=== PATIENT | male | born 1955 | race Caucasian/White ===

== ENCOUNTER 2023-10-04 08:34 | Inpatient (IN) | payer MEDICARE, SELFPAY ==
[2023-09-28 13:30] VITALS: BMI 29.8
[2023-10-04] VITALS (19 sets, daily range): BP systolic 95–145; BP diastolic 48–88; PULSE 60–108; RESP 14–23; TEMP 36–36.8; O2SAT 92–100; BMI 29.8
[2023-10-04] MEDS: LACTATED RINGERS 1,000 ML 42 ML IV ×3 (09:27→15:37)
--- NOTE | 2023-10-04 11:19 | PM.PREOP ---
Pre-operative Note Interval Note History & Physical reviewed/Exam performed by Physician: Yes Changes to H&P: No
[2023-10-04] MEDS: CEFAZOLIN 2 GM/100 ML PREMIX 100 ML IV ×2 (12:31→21:18)
--- NOTE | 2023-10-04 13:31 | SUR.OPER ---
Prone on spine table, head in foam head support, padded chest and pelvic supports, gel pad at knees, lower legs supported by pillows; nipples, genitalia and toes free of pressure, arms secured on foam padded arm boards at <90 degrees abduction. Tape over blanket at thigh secured to table.
[2023-10-04] MEDS: BUPIVACAINE 0.25% (PF) 60 ML, EPINEPHrine 0.15 MG INJ (13:39)
[2023-10-04] MEDS: BUPIVACAINE LIPOSOME 266 MG/20 ML VIAL INJ (13:40)
--- NOTE | 2023-10-04 14:49 | DI.RAD.S_ITS ---
PROCEDURE: XR LUMBAR SPINE 2-3V INDICATIONS: L 4-5, L5-S1 TLIF TECHNIQUE: 2 intraoperative fluoroscopic views of the lumbar spine were acquired. COMPARISON: [facility], , L-SPINE 2-3 VIEWS, 11/22/2015, 13:59. FINDINGS: Intraoperative fluoroscopic images of lower lumbar spine shows posterior fusion at L4-5 and L5-S1 levels. IMPRESSION: Fluoro guidance was provided intraoperatively for posterior fusion at L4-5 and L5-S1 levels. Dictated by: Pedro Castillo M.D. on 10/04/2023 at 17:28 Approved by: Pedro Castillo M.D. on 10/04/2023 at 17:29
--- NOTE | 2023-10-04 17:11 | P.OP_ITS ---
Operative Date/Time/Diagnoses Date of procedure: 10/04/23 Time of procedure: 12:50 Pre-op diagnosis: 1. L4-5, L5-S1 spinal stenosis with radiculopathy 2. History of L4-5, L5-S1 laminectomy with epidural scarring Post-op diagnosis: same Procedure & Clinicians Procedure: 1. L4-5, L5-S1 Postero-lateral and posterior interbody fusion 2. L4-5, L5-S1 interbody cage placement. 3. L4-5, L5-S1 decompressive laminectomy with bilateral facetecomies 4. L4-5, L5-S1 Posterior segmental instrumentation 5. [place] of bone marrow from iliac crest 6. Utilization of microsurgical technique and operating microscope 7. Utilization of robotic assisted navigation Same procedure as scheduled: Yes Indications: Patient has been having chronic back pain and worsening lumbar radiculopathy. Patient had previous history of laminectomy at his L4-5 L5-S1 level on the right side. Patient has persisting and worsening pain right worse than left. Patient failed multiple conservative management with worsening pain weakness and numbness in his lower extremity. Patient has been having difficulty performing activity of daily living. After discussing risks benefits of treatment options, patient elected proceed with surgery. Surgeon: Kathrine Woodard Still Operator Brandy: Iron Berry Click Yes if Unassisted: No Anesthesia Type: General Operative Notes Closure Type: primary Prosthetic devices, grafts, tissues, transplants, or devices: Globus CREO MIS screws, Rise cages Applied: catheter Estimated Blood Loss (mL): 100 Blood products transfused: none Procedure in detail: Patient was seen in the preoperative area. Risks and benefits of the surgery was discussed with the patient. Informed consent was obtained from the patient and placed in the chart. Surgical site was marked. Patient was taken to the operative room. General anesthesia was administered. Prophylactic antibiotic was given to the patient less than 30 min before the incision was made. Patient was placed into a prone position on the Carlito table. Patient's back was then prepped and draped in the sterile fashion. Time-out was performed at this time. After patient was prepped and draped, patient's PSIS was palpated and marked bilaterally. Small 1 cm incision was made over the PSIS for placement of the reference probes. Two trocar was placed into the PSIS 1 on each side. The reference probe was attached to the trocar of the reference apparatus. At this time the C-arm imaging was used to confirm AP and lateral of L4-L5, L5- S1 vertebrae and merged the C-arm imaging using the MatrixVision robotic navigation system with the CT of the lumbar spine. After successful merging was completed and confirmed, skin marker was used to zoila out the skin incision using the MatrixVision robotic arm. Bilateral incision was made at this time. Pre templated trajectory was used and guided using the MatrixVision robotic navigation system for bilateral L4, L5, S1 pedicle screw placement. This was done by using the robotic arm to guide the high-speed bur to make a cortical entry point. Next a drill was placed also using the robotic arm and guided using the navigation system drilling partially through bilateral L4, L5 and S1 pedicles. Next L4, L5, S1 pedicle screws it was pre templated and measured was placed onto the power straddle truck driver and inserted into the pedicles bilaterally. After all 6 screws were placed C-arm imaging was taken of both AP and lateral to confirm the placement. Excellent placement of the screws were confirmed and a matched precisely with the pre planned screw placement using the navigation system. MARs retractor was inserted using [employer] guidence. Globus MARS retractors was placed inside the incision and docked onto the L4 and L5 lamina. Using microsurgical technique and operating microscope, a L4, L5 laminectomy and L4-5, L5-S1 facetectomy was performed using a Kerrison rongeur. Patient was found to have significant amount of epidural scarring from previous laminectomy with dural and nerve root adhesion. Special care was taken to dissect them free off the dura and nerve root in the process of exposing the disc space in the process of decompression and diskectomy. The laminectomy and facetectomy was performed in order to decompress patient's cauda equina as well as the nerve roots exiting at the L4-5, L5-S1 level. Patient was found have severe lateral recess and neural foramen stenosis which was fully decompressed after the kamaljit ectomy facetectomy. More than 75% of the facets were removed during the process of decompression rendering L4-5, L5-S1 level grossly unstable and required a fusion procedure at the same time. The disc space at L4-5, L5-S1 was identified, and a total diskectomy was performed at L4-5, L5-S1 level. The endplates were decorticated using a rasp and shaver. The total diskectomy and decortication was performed at L4-5, L5-S1 level in order to to accomplish a L4- 5, L5-S1 fusion. The local bone from the laminectomy and facetectomy was saved for local bone grafting. After the total diskectomy and decortication was completed, DBM bone graft material was combined with local bone that was harvested earlier. At this time, a separate skin is incision was made over the iliac crest. A Jamshidi needle was inserted into the iliac crest through a separate skin incision. 5 cc of bone marrow aspiration was obtained through the separate skin incision using a Jamshidi needle from the iliac crest. The bone marrow aspiration was combined with local bone and the DBM bone grafting material. The bone grafting material was placed into the L4-5, L5-S1 interbody space along with a expandable cage. The cage was expanded to its maximum height using the torque limiting screwdriver. The disc preparation as well as the cage insertion were also performed under navigation guidance. After the cage was placed, AP and lateral C-arm imaging was taken to confirm placement of the cage and excellent position was confirmed. Globus MARS retractor was inserted and docked onto the L4-5, L5-S1 posterolateral gutter on the right side. Using the power drill, posterior- lateral decortication was performed at L4-5, L5-S1 level until bleeding cortical bone was identified. The remaining bone grafting material was placed into the L4-5, L5-S1 posterior lateral gutter he order to accomplish posterolateral fusion at the L4-5, L5-S1 level. At this time the tulips were attached to the L4, L5, S1 pedicle screw shanks. After measuring the length of the rods, they were inserted into the tulips of the pedicle screws and locked in place using locking caps and torque limiting screwdriver bilaterally. Total 6 caps and 2 titanium rods was used in order to complete the posterior instrumentation construct. After all the hardware was placed, and confirmed with AP and lateral C-arm imaging, the wound was then irrigated with sterile normal saline and packed with Ray-Kerry gauze for 3 min to accomplish hemostasis. After the gauze was removed the deep fascia was closed with #1 Vicryl suture. The subcutaneous layer was closed with 2-0 Vicryl. The skin was closed with skin tres. Patient tolerated the procedure well. There were no complications. Neuro monitoring system was used to monitor patient's neurologic status throughout entire procedure. There was no disturbance of the neural monitoring signals throughout the case. The Operation could not have been safely performed without compromising the tech nical result or length of the procedure, without the assistance of a skilled surgical instrument maker. The surgical instrument maker was medically necessary for proper positioning, retraction and manipulation of instruments, proper exposure, surgical preparation, and manipulation of tissue. Complications: none Post-operative Condition: stable Disposition: PACU Plan for aftercare: Admit to inpatient hospital
[2023-10-04] MEDS: LORazepam 2 MG/ML INJ 1 MG IV (18:00)
[2023-10-04] MEDS: HYDROMORPHONE 1 MG INJ IV ×2 (18:01→18:48)
[2023-10-04] MEDS: fentaNYL 100 MCG/2 ML INJ IV ×2 (18:13→18:54)
[2023-10-04] MEDS: OXYCODONE/ACETAMINOPHEN 5/325 TABLET 1 TAB PO ×2 (18:52→19:22)
[2023-10-04] MEDS: LACTATED RINGERS 1,000 ML 125 ML IV (20:07)
[2023-10-04] MEDS: ATORVASTATIN 20 MG TABLET 80 MG PO (21:17)
[2023-10-04] MEDS: METOPROLOL ER 50 MG TABLET PO (21:17)
[2023-10-04] MEDS: ACETAMINOPHEN 325 MG TABLET 650 MG PO (21:17)
[2023-10-04] MEDS: lisinopriL 10 MG TABLET PO (21:17)
[2023-10-04] MEDS: SENNOSIDES 8.6 MG TABLET 17.2 MG PO (21:17)
[2023-10-04] MEDS: DOCUSATE 100 MG CAPSULE PO (21:18)
--- NOTE | 2023-10-04 21:34 | PC.NURSE ---
salazar since pt's arrival to from PACU approx 1930 pt has been complaining of need to pee and continuously rolling back and forth and pulling at blankets and salazar. Salazar patent up on arrival to with chicken broth appearing urine in collection tubing draining into salazar bag. Salazar inspected and was free of any kinks or abnormalities and appeared to be draining as is supposed to. 2100 salazar DC'd per pt request. 300 cc of urine emptied from salazar. Bladder scan performed at 0 as pt states continued need to void and is unable to do so to urinal; scan result 72cc. pt denies any pre-op UTI symptoms. Brief placed. pt educated that we can continue to scan bladder, assist with urinal use if/when needed. Bed alarm on .
[2023-10-05] VITALS (10 sets, daily range): BP systolic 95–130; BP diastolic 53–68; PULSE 68–96; RESP 16–19; TEMP 36.4–37.3; O2SAT 94–99
[2023-10-05] MEDS: OXYCODONE IR 10 MG TABLET PO ×6 (00:53→19:53)
[2023-10-05] MEDS: CEFAZOLIN 2 GM/100 ML PREMIX 100 ML IV (04:07)
[2023-10-05 04:52] LABS: Hematocrit 34.6 % (41-53); Hemoglobin 11.4 g/dL (13.5-17.5)
[2023-10-05] MEDS: DOCUSATE 100 MG CAPSULE PO ×2 (08:48→20:38)
[2023-10-05] MEDS: METOPROLOL ER 50 MG TABLET PO (08:51)
--- NOTE | 2023-10-05 09:25 | OT.IP.EVAL ---
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) Left anterior fascicular block Surgical History (Last Updated 09/28/23 @ 14:08 by Lynn Martinez RN) History of ankle surgery History of cardiac catheterization History of cervical spinal surgery History of spinal surgery Hx of heart artery stent (01/08/20) Occupational Therapy Inpatient Evaluation/Re-Eval M1 PT/OT-IP Prior Functional Status Start: 10/05/23 10:15 Freq: NEEDED Status: Active Protocol: Document 10/05/23 09:25 [facility] (Rec: 10/05/23 10:31 [facility] [id number]) Medical Review Prior Functional Status Medical History Reviewed Yes Diet/Fluid Consistency Regular Communication WNLs, hyperverbal and distractable, difficult to stay on task with PT Mobility and Gait I Activities of Daily Living and IADL's I, lives alone, volunteers for Meals on Wheels Social History Household Members none Living Arrangements House Number of Floors (Floors) One Floor Number of Stairs To Enter/Railing? 5 steps to enter with two rails that he can reach Home Environment Standard Height Toilet,Walk in Shower Home Equipment Shower Seat without Backrest Employment Status Retired Additional Social History Comment Pt plans to stay at his neighbor's place [facility] first night. Pt has a standard pickle pumper walker. M2 OT-IP Current Condition Start: 10/05/23 10:15 Freq: Status: Active Protocol: Document 10/05/23 09:25 [facility] (Rec: 10/05/23 10:31 [facility] [id number]) Occupational Therapy Current Condition Current Condition Evaluation Date 10/05/23 Treatment Diagnosis S/P L4-5, L5-S1 TLIF Diagnosis Onset Date 10/04/23 Post Operative Precautions Lumbar Precautions Log Roll,No Twisting,Limit Bending,Lifting Restriction of 10 lbs,Gait Belt above Incisional Area M3 OT- IP Subjective and Pain Start: 10/05/23 10:15 Freq: Status: Active Protocol: Document 10/05/23 09:25 [facility] (Rec: 10/05/23 10:31 [facility] [id number]) OT- Subjective Occupational Therapy Visit Type Type Initial Evaluation Visit Start Time 09:25 Visit Stop Time 09:50 Total Visit Minutes 25 Occupational Therapy Visit Comments Patient Comments Pt agreed to get up to do grooming needs Patient/Caregiver Goals To go home. OT Pain Assessment Pain When Pain Assessed During Mobility Pain Present Pain Present Pain Reported Location back Intensity 8 Scale Used Numeric (0 - 10) M4 OT- IP ADL's Start: 10/05/23 10:15 Freq: Status: Active Protocol: Document 10/05/23 09:25 [facility] (Rec: 10/05/23 10:31 [facility] [id number]) OT [id number] General Evaluation Self-Feeding Ability Independent OT ADL-Grooming General Evaluation Grooming Ability Independent OT ADL-Oral Care General Eval Oral Care Ability Independent Comments Oral Care Comments Cues to hinge at his hips or spit into a cup to best follow his back precautions. OT ADL-Dressing General Eval Lower Body Dressing Ability Standby Assistance Comments OT Dressing Comments Pt insists that he can do all LB dressing needs on his own and able to comfortable cross his legs over to esperanza/doff his socks and not open to any LB dressing equipment needs at this time. OT ADL-Toileting Comments OT Toileting Comments Pt not having to go . Pt agreed would be beneficial to take the urinal home. OT ADL-Bathing Comments OT Bathing Comments Not performed. Best to have someone there when showering to help cover his dressing. M5 OT- IP IADL's Start: 10/05/23 10:15 Freq: Status: Active Protocol: Document 10/05/23 09:25 [facility] (Rec: 10/05/23 10:31 [facility] [id number]) OT-Instrumental Activities of Daily Living Deficits IADL Deficits Identified Deficits Home Safety Awareness Awareness of Need for Assistance at Home Decreased Awareness Home Safety Comments Pt is impulsive and needing constant safety cues for his back precautions. M6 OT- IP Functional Cognition Start: 10/05/23 10:15 Freq: Status: Active Protocol: Document 10/05/23 09:25 [facility] (Rec: 10/05/23 10:31 [facility] [id number]) Cognitive Factors Limiting Selfcare Function Cognitive Ability Level of Alertness Alert Patient Orientation Name,Age,Birthday,Place, Situation Attention Span Ability Capable of Focused Attention, Capable of Sustained Attention Ability to Follow Commands Able to Follow One Step Commands Safety Awareness Decreased Recall of Precautions,Decreased Ability to Apply Precautions, Underestimates Need for Assistance Cognitive Comments Cognitive Assessment Comments Pt not able to recall all back precautions and needing MAX vc to follow them for ADL and mobility needs. OT- Vision and Hearing OT- Hearing Assessment OT- Hearing Assessment WFL OT- Vision Assessment Visual Acuity Glasses For Reading M7 OT- IP Mobility and Balance Start: 10/05/23 10:15 Freq: Status: Active Protocol: Document 10/05/23 09:25 [facility] (Rec: 10/05/23 10:31 [facility] [id number]) OT- Bed Mobility Assessment Sit to Supine Sit to Supine Assist Standby Assistance OT-Transfer Assessment Sit to and From Stand Sit to and from Stand Standby Assistance Transfers Transfer Ability Contact Guard Assistance Technique Transfer Destination Bed,Chair Transfer Technique Stand Step Pivot Devices Transfer Assistive Devices Gait Belt,Front Wheeled Walker Orthotic/Prosthetic Devices or Brace: No Comments Mobility Comments Pt SBA to stand and occasional CGA for balance as the FWW tends to roll in front on him and needing assist for balance . OT- Balance Assessment Sitting Balance and Reactions Static Sitting Balance Ability Normal Dynamic Sitting Balance Ability Good Standing Balance and Reactions Static Standing Balance Ability Good Dynamic Standing Balance Ability Fair M8 OT- IP Objective Assessments Start: 10/05/23 10:15 Freq: Status: Active Protocol: Document 10/05/23 09:25 [facility] (Rec: 10/05/23 10:31 [facility] [id number]) OT Gross Range of Motion Upper Extremity Range of Motion Assessment Within Functional Limits OT Strength Upper Extremity Strength Assessment Within Functional Limits M9 OT- IP Assessment and Plan Start: 10/05/23 10:15 Freq: Status: Active Protocol: Document 10/05/23 09:25 [facility] (Rec: 10/05/23 10:31 [facility] [id number]) OT Summary Assessment and Plan Potential Rehabilitation Potential Good Analytic Complexity at Evaluation Low Summary OT Impairments Pain,Balance,Functional Mobility,Dressing,Toileting, Bathing,Toilet Transfers, Shower Transfers Progress Towards Goals Progressing Toward Goals,Slow Progress due to Pain Assessment Summary Pt Low complexity and main barriers are pain, decreased safety awareness, impulsive and needing constant cue to incorporate his back precautions. Pt to go his neighbor's place initially. Pt states has friends to assist with his needs at home. Pt will benefit from LB dressing equipment and a FWW. Goals Dressing Goal Independent Toileting Goal Independent Bathing Goal Independent Toilet Transfer Goal Independent Shower Transfer Goal Independent Days to Meet Goals 7 Frequency of Treatment Frequency Of Treatment Once a Day Treatment Plan OT Treatment Plan ADL Training,Functional Mobility,Patient/Family Education,Discharge Planning Discharge Recommendations OT Discharge Recommendations Home with Assistance Home Equipment Needs FWW, LB dressing equipment Transportation Needs at Discharge Private Vehicle
--- NOTE | 2023-10-05 09:59 | PT.IIE ---
Current Diagnoses Spinal stenosis, lumbosacral region (10/04/23) Postlaminectomy syndrome, not elsewhere classified (10/04/23) Surgery Performed Operation Date: 10/04/23 10:45 Actual Procedures p L4-5, L5-S1 TLIF with posterior instrumentation -Robot - Kathrine Woodard MD Surgical History (Last Updated 09/28/23 @ 14:08 by Lynn Martinez, RN) History of ankle surgery History of cardiac catheterization History of cervical spinal surgery History of spinal surgery Hx of heart artery stent (01/08/20) Medical History (Last Updated 09/28/23 @ 13:54 by Lynn Martinez RN) Anterior myocardial infarction (01/08/20) CAD (coronary artery disease) Chronic neck pain Dilated cardiomyopathy History of alcohol abuse HLD (hyperlipidemia) HTN (hypertension) ICD (implantable cardioverter-defibrillator) in place (11/05/20) Left anterior fascicular block Physical Therapy Inpatient Evaluation/Re-Eval M1 PT/OT-IP Prior Functional Status Start: 10/05/23 08:24 Freq: NEEDED Status: Active Protocol: Document 10/05/23 08:40 MB (Rec: 10/05/23 09:57 MB [id number]) Medical Review Prior Functional Status Medical History Reviewed Yes Diet/Fluid Consistency Regular Communication WNLs, hyperverbal and distractable, difficult to stay on task with PT Mobility and Gait I Activities of Daily Living and IADL's I, lives alone, volunteers Social History Household Members none Living Arrangements House Number of Floors (Floors) One Floor Number of Stairs To Enter/Railing? 5 steps to enter with two rails that he can reach Home Environment Standard Height Toilet,Walk in Shower Home Equipment Shower Seat without Backrest Employment Status Retired M2 PT-IP Current Condition Start: 10/05/23 08:24 Freq: NEEDED Status: Active Protocol: Document 10/05/23 08:40 MB (Rec: 10/05/23 09:57 MB [id number]) Physical Therapy Current Condition Current Condition Evaluation Date 10/05/23 Treatment Diagnosis L4-S1 interbody fusion and cage placement Onset Date 10/04/23 M3 PT-IP Subjective Start: 10/05/23 08:24 Freq: NEEDED Status: Active Protocol: Document 10/05/23 08:40 MB (Rec: 10/05/23 09:57 MB [id number]) Subjective Physical Therapy Visit Type Type Initial Evaluation Visit Start Time 08:40 Visit Stop Time 09:20 Total Visit Minutes 40 Number of SENIOR MAINTENANCE TECHNICIAN Visits 0 Physical Therapy Visit Comments Patient Comments I can get up and walk and then take a motorcycle ride! Therapy Pain Assessment Pain When Pain Assessed During Mobility Pain Present Pain Present Pain Reported Location back Intensity 5 Scale Used PuenteMeaghan (Faces) Description Acute Pain Behaviors Guarding Pain Management Techniques Distraction,Modification of Treatment,Timing of Activity with Medications M4 PT-IP Mobility and Gait Start: 10/05/23 08:24 Freq: NEEDED Status: Active Protocol: Document 10/05/23 08:40 MB (Rec: 10/05/23 09:57 MB [id number]) PT-Bed Mobility Assessment Rolling Type of Rolling Log Rolling Level of Assist Standby Assistance,1 Person Assistance Supine to Sit Supine to Sit Standby Assistance,1 Person Assistance,Bedrails Scooting Scooting to Edge of Bed Standby Assistance PT-Transfer Assessment Sit to and From Stand Sit to and from Stand Contact Guard Assistance,1 Person Assistance,Use of Upper Extremities Equipment Transfer Assistive Device Gait Belt,Front Wheeled Walker Orthotic/Prosthetic Devices or Brace: No Comments Mobility Comments Pt is impulsive and does not wait to follow commands. PT ed pt in log rolling and then must remind pt to perform before getting OOB to the left . Pt requires constant cueing for safety with mobility. Gait Assessment Gait Gait Assistance Required: Contact Guard Assist,1 Person Assist Distance (Feet) 100 Able to Maintain Weight Bearing Status Yes During Gait Assistive Devices Assistive Device Gait Belt,Front Wheeled Walker Orthotic/Prosthetic Devices or Brace: No Gait Deviations General Gait Pattern Antalgic Factors Limiting Gait Function Factors Limiting Gait Function Pain,Poor Balance,Poor Safety Awareness Comments Gait Comments Pt gait trains 10'x1, 100'x1, 5'x2 and 10'x1 with RW, cues, and CGA. Pt with poor safety awareness and high impulsivity . He requires constant cueing for redirection to improve safety and balance. He c/o back pain with gait and so PT pushes him back to room in w/c . Pt states he has a SW that he borrowed and he does not want to buy a RW from the hospital. He states he can get one from a DME place in [facility]. Pt demos how it would be to use a SW and then he states he sees how the RW is optimal for gait. Stair Climbing Assessment Evaluation Level of Assist On Stairs Contact Guard Assistance,1 Person Assistance Devices Stair Climbing Assistive Devices Left Railing,Right Railing Technique/Endurance Stair Climbing Direction Ascend and Descend Stair Climbing Technique Step Over Step Number of Steps Climbed 3 Query Text: Stair Climbing Set # Repetitions (reps) 2 Comments Stair Climbing Comments Pt with fast speed and impulsivity with steps PT-Balance Assessment Sitting Balance and Reactions Static Sitting Balance Ability Good Dynamic Sitting Balance Ability Good Standing Balance and Reactions Static Standing Balance Ability Fair Dynamic Standing Balance Ability Fair M5 PT-IP Objective Assessments Start: 10/05/23 08:24 Freq: NEEDED Status: Active Protocol: Document 10/05/23 08:40 MB (Rec: 10/05/23 09:57 MB [id number]) Orientation Orientation/Cognition Level of Alertness Alert Orientation Name,Age,Birthday,Month,Date, Year,Day of Week,Place, Situation Language Function Ability No Deficits Noted Safety Awareness Decreased Safety Awareness Memory Description No Deficits Noted Gross Range of Motion Upper Extremity ROM Impairments Defer to OT Lower Extremity ROM Assessment Within Functional Limits Strength Lower Extremity Strength Assessment Within Functional Limits Sensation Assessment Sensation Gross Sensation WNL M6 PT-IP Treatment Start: 10/05/23 08:24 Freq: NEEDED Status: Active Protocol: Document 10/05/23 08:40 MB (Rec: 10/05/23 09:57 MB [id number]) Physical Therapy Treatment Education Education Provided Precautions,Post-Op Packet, Safety M7 PT-IP Assessment and Plan Start: 10/05/23 08:24 Freq: NEEDED Status: Active Protocol: Document 10/05/23 08:40 MB (Rec: 10/05/23 09:57 MB [id number]) PT Summary Assessment and Plan Potential Rehabilitation Potential Good Status of Condition at Evaluation Stable Summary Impairments Pain,Balance,Activity Tolerance Progress Towards Goals Progressing Toward Goals Assessment Summary Pt is a 68 y/o male presenting with impulsivity with mobility and difficulty staying on task. He requires constant cueing to perform log roll, for hand placement with transfers, for walker position for transfers and for stair training. Pt has a SW he borrowed and is adamant about not wanting to buy a RW from the hospital. After gait training with RW and PT's explanation, he verbalizes understanding how the RW is more helpful for gait than the SW. He is at high fall risk. He states his neighbor will pick him up from the hospital and that his neighbors can help him at home. Goals Bed Mobility Goal Independent Transfer Goal Independent,Front Wheeled Walker Gait Goal Independent,Front Wheel Walker Gait Distance 100 Other Goals Pt will ascend and descend 5 steps with 2 rails and mod I. Pt will verbalize 3/3 back precautions. Days to Meet Goals 2 Frequency of Treatment Frequency Of Treatment Twice a Day Treatment Plan Physical Therapy Treatment Plan Bed Mobility Training,Transfer Training,Gait Training, Therapeutic Exercise,Balance Retraining,Post Op Education, Discharge Planning,Hot or Cold Pack Precautions Lumbar Precautions Log Roll,No Twisting,Limit Bending,Lifting Restriction of 10 lbs,Gait Belt above Incisional Area Weight Bearing Status Weight Bearing Status Weight Bear as Tolerated Recommendations To Nursing Amount of Assist Needed 1 Person Assist Discharge Recommendations PT Discharge Recommendations Home with Assistance Transportation Needs at Discharge Private Vehicle
--- NOTE | 2023-10-05 10:32 | PM.PNPO.1 ---
Subjective Subjective Date Patient Seen: 10/05/23 Time Patient Seen: 10:32 Interval history: Patient states his pain is [id number]. Denies fever or chills. No nausea or vomiting. Patient does live alone. Patient states he has some neighbors that we will be available to assist him. Exam Vital Signs (past 8 hours): - 10/05/23 04:00 10/05/23 08:13 10/05/23 08:20 Temperature 97.7 F 98.1 F Pulse Rate 70 88 Respiratory Rate 19 17 Blood Pressure 106/57 L 95/53 L Pulse Oximetry 99 98 Oxygen Delivery Method Room Air Oxygen Flow Rate 3 0 0 Fraction of Inspired Oxygen 21 10/05/23 08:51 10/05/23 08:51 Temperature Pulse Rate 88 Respiratory Rate Blood Pressure 101/56 L 101/56 L Pulse Oximetry Oxygen Delivery Method Oxygen Flow Rate Fraction of Inspired Oxygen Fraction of Inspired Oxygen 21 Oxygen Delivery Method Room Air Oxygen Flow Rate 0 Narrative Exam Narrative: 68-year-old male resting comfortably in bed in no apparent distress. Sensation grossly intact to light touch bilateral lower extremities. Motor functions intact bilateral lower extremities. Const General: cooperative and comfortable Nutritional Appearance: average body habitus Orientation: alert Resp Effort & Inspection: normal respiratory effort and able to speak in complete sentences Objective Labs 10/05/23 04:36 Labs: Laboratory Results - last 24 hr 10/05/23 04:36 Hgb 11.4 L Hct 34.6 L PFSH Medical History Left anterior fascicular block HTN (hypertension) HLD (hyperlipidemia) Dilated cardiomyopathy Chronic neck pain CAD (coronary artery disease) History of alcohol abuse ICD (implantable cardioverter-defibrillator) in place (11/05/20) Anterior myocardial infarction (01/08/20) Surgical History History of ankle surgery History of cervical spinal surgery History of spinal surgery History of cardiac catheterization Hx of heart artery stent (01/08/20) Social History household members: none Smoking Status: Former smoker alcohol intake: former Assessment & Plan Post-op Postoperative Procedures: Procedures Operation Date: 10/04/23 10:45 Actual Procedure Side Surgeon p L4-5, L5-S1 TLIF with posterior instrumentation -Robot Kathrine Woodard MD Postoperative day: 1 Postoperative status: doing well Postoperative status narrative: Patient progressing as expected status post lumbar fusion Postoperative plan narrative: Mobilize with physical therapy, limit bending, twisting, lifting Multimodal pain management Disposition to be determined Quality VTE Deep Vein Thrombosis/Pulmonary Embolism Present on Admission: No
[2023-10-05] MEDS: LACTATED RINGERS 1,000 ML 125 ML IV (11:27)
--- NOTE | 2023-10-05 12:31 | PM.PNPO.1 ---
Subjective Subjective Interval history: pt resting in bed. expresses pain controlled at this time. ambulating around the halls with pain and discomfort. no issues with anesthesia. Exam Vital Signs (past 8 hours): - 10/05/23 08:13 10/05/23 08:20 10/05/23 08:51 Temperature 98.1 F Pulse Rate 88 Respiratory Rate 17 Blood Pressure 95/53 L 101/56 L Pulse Oximetry 98 Oxygen Delivery Method Room Air Oxygen Flow Rate 0 0 Fraction of Inspired Oxygen 21 10/05/23 08:51 10/05/23 11:22 10/05/23 11:28 Temperature 98.5 F Pulse Rate 88 68 77 Respiratory Rate 16 Blood Pressure 101/56 L 96/55 L 96/55 L Pulse Oximetry 97 Oxygen Delivery Method Oxygen Flow Rate Fraction of Inspired Oxygen Fraction of Inspired Oxygen 21 Oxygen Delivery Method Room Air Oxygen Flow Rate 0 Objective Labs 10/05/23 04:36 Labs: Laboratory Results - last 24 hr 10/05/23 04:36 Hgb 11.4 L Hct 34.6 L PFSH Medical History Left anterior fascicular block HTN (hypertension) HLD (hyperlipidemia) Dilated cardiomyopathy Chronic neck pain CAD (coronary artery disease) History of alcohol abuse ICD (implantable cardioverter-defibrillator) in place (11/05/20) Anterior myocardial infarction (01/08/20) Surgical History History of ankle surgery History of cervical spinal surgery History of spinal surgery History of cardiac catheterization Hx of heart artery stent (01/08/20) Social History household members: none Smoking Status: Former smoker alcohol intake: former Assessment & Plan Post-op Postoperative Procedures: Procedures Operation Date: 10/04/23 10:45 Actual Procedure Side Surgeon p L4-5, L5-S1 TLIF with posterior instrumentation -Robot Kathrine Woodard MD Quality VTE Deep Vein Thrombosis/Pulmonary Embolism Present on Admission: No
--- NOTE | 2023-10-05 13:08 | PT.IPTN ---
Current Diagnoses Spinal stenosis, lumbosacral region (10/04/23) Postlaminectomy syndrome, not elsewhere classified (10/04/23) Surgery Performed Operation Date: 10/04/23 10:45 Actual Procedures p L4-5, L5-S1 TLIF with posterior instrumentation -Robot - Kathrine Woodard MD Physical Therapy Treatment Note M2 PT-IP Current Condition Start: 10/05/23 08:24 Freq: NEEDED Status: Active Protocol: Document 10/05/23 08:40 MB (Rec: 10/05/23 09:57 MB [id number]) Physical Therapy Current Condition Current Condition Evaluation Date 10/05/23 Treatment Diagnosis L4-S1 interbody fusion and cage placement Onset Date 10/04/23 M3 PT-IP Subjective Start: 10/05/23 08:24 Freq: NEEDED Status: Active Protocol: Document 10/05/23 13:47 TS (Rec: 10/05/23 14:03 TS [id number]) Subjective Physical Therapy Visit Type Type Treatment Note Visit Start Time 13:08 Visit Stop Time 13:32 Total Visit Minutes 24 Number of TILE SPRAYER Visits 1 Physical Therapy Visit Comments Patient Comments Pt found resting in bed, impulsive to move before therapist is ready, reports feeling woozy and having higher pain this afternoon. Therapy Pain Assessment Pain When Pain Assessed During Mobility Pain Present Pain Present Pain Reported Location back Pain Behaviors Facial Grimacing,Guarding, Restlessness,Wincing Pain Management Techniques Distraction,Modification of Treatment,Timing of Activity with Medications M4 PT-IP Mobility and Gait Start: 10/05/23 08:24 Freq: NEEDED Status: Active Protocol: Document 10/05/23 13:47 TS (Rec: 10/05/23 14:03 TS [id number]) PT-Bed Mobility Assessment Rolling Type of Rolling Log Rolling Level of Assist Standby Assistance,1 Person Assistance Supine to Sit Supine to Sit Standby Assistance,1 Person Assistance,Bedrails Sit to Supine Sit to Supine Standby Assistance Scooting Scooting to Edge of Bed Standby Assistance Scooting Up and Down in Bed Standby Assistance PT-Transfer Assessment Sit to and From Stand Sit to and from Stand Standby Assistance,Use of Upper Extremities Equipment Transfer Assistive Device Gait Belt,Front Wheeled Walker Orthotic/Prosthetic Devices or Brace: No Comments Mobility Comments BP in supine 102/58, pt recalled 2/3 spinal precautions(no twisiting) prior to mobility. Logroll to R side SBA with use of handrails, pt cued for decreased twisting in low back . Supine to sit HOB elevated SBA with BUE support, pt demonstrates good carryover. Pt is impulsive to stand before therapist is ready. Sit to stand with FWW SBA, BP in standing 106/61, pt reports some lightheadedness. He his teeth on floor, attempted to seed cone picker, therapist made pt aware of spinal precautions and to not pick item off floor . Pt ambulated ~80'SBA w/FWW and a step thru gait. Pt reports increased dizziness, sat in w/c and was bought back to room. Sit to supine into bed SBA with logroll, pt demonstrates good carryover. Pt was left in bed all needs met, RN notified. Gait Assessment Gait Gait Assistance Required: Standby Assistance,1 Person Assist Distance (Feet) 80 Able to Maintain Weight Bearing Status Yes During Gait Assistive Devices Assistive Device Gait Belt,Front Wheeled Walker Orthotic/Prosthetic Devices or Brace: No Gait Deviations General Gait Pattern Antalgic Factors Limiting Gait Function Factors Limiting Gait Function Pain,Poor Balance,Poor Safety Awareness Comments Gait Comments See mobility comments PT-Balance Assessment Sitting Balance and Reactions Static Sitting Balance Ability Normal Dynamic Sitting Balance Ability Good Standing Balance and Reactions Static Standing Balance Ability Good Dynamic Standing Balance Ability Fair M5 PT-IP Objective Assessments Start: 10/05/23 08:24 Freq: NEEDED Status: Active Protocol: Document 10/05/23 08:40 MB (Rec: 10/05/23 09:57 MB [id number]) Orientation Orientation/Cognition Level of Alertness Alert Orientation Name,Age,Birthday,Month,Date, Year,Day of Week,Place, Situation Language Function Ability No Deficits Noted Safety Awareness Decreased Safety Awareness Memory Description No Deficits Noted Gross Range of Motion Upper Extremity ROM Impairments Defer to OT Lower Extremity ROM Assessment Within Functional Limits Strength Lower Extremity Strength Assessment Within Functional Limits Sensation Assessment Sensation Gross Sensation WNL M6 PT-IP Treatment Start: 10/05/23 08:24 Freq: NEEDED Status: Active Protocol: Document 10/05/23 13:47 TS (Rec: 10/05/23 14:03 TS [id number]) Physical Therapy Treatment Education Education Provided Precautions,Post-Op Packet, Safety M7 PT-IP Assessment and Plan Start: 10/05/23 08:24 Freq: NEEDED Status: Active Protocol: Document 10/05/23 13:47 TS (Rec: 10/05/23 14:03 TS [id number]) PT Summary Assessment and Plan Potential Rehabilitation Potential Good Summary Impairments Pain,Balance,Activity Tolerance Progress Towards Goals Slow Progress due to Pain,Slow Progress - Other Assessment Summary Edmond is making slow progress with his mobility this session due to his worsening of pain and lightheadedness. He is SBA for all bed mobility and requires some cueing for spinal precautions. He performed sit to stand with FWW SBA, pt is impulsive to stand before therapist is ready. He ambulated ~80'SBA with FWW, reported feeling woozy and required to sit down. Pt requires frequent cueing for safety with mobility and needs cues for spinal precautions, he lacks good safety awareness. Pt attempted to bend over to pick dentures off of ground and tends to twist at times. PT is recommending home with assist . Goals Bed Mobility Goal Independent Transfer Goal Independent,Front Wheeled Walker Gait Goal Independent,Front Wheel Walker Gait Distance 100 Other Goals Pt will ascend and descend 5 steps with 2 rails and mod I. Pt will verbalize 3/3 back precautions. Days to Meet Goals 2 Frequency of Treatment Frequency Of Treatment Twice a Day Treatment Plan Physical Therapy Treatment Plan Bed Mobility Training,Transfer Training,Gait Training, Therapeutic Exercise,Balance Retraining,Post Op Education, Discharge Planning,Hot or Cold Pack Precautions Lumbar Precautions Log Roll,No Twisting,Limit Bending,Lifting Restriction of 10 lbs,Gait Belt above Incisional Area Weight Bearing Status Weight Bearing Status Weight Bear as Tolerated Recommendations To Nursing Amount of Assist Needed 1 Person Assist Discharge Recommendations PT Discharge Recommendations Home with Assistance Transportation Needs at Discharge Private Vehicle
--- NOTE | 2023-10-05 16:45 | CM.DANOTE ---
DCP Assessment Note Patient is a 68yo M here following TLIF with Dr. Woodard on 10-04-23 PCP Gavin Woodruff Payer Medicare and self pay FACILITY COORDINATOR reviewed EMR. Per PT/OT, rec home with assistance. FACILITY COORDINATOR entered room and introduced self and role. Pt sitting up in bed. Pt lives alone in [facility] and is normally indep at baseline. Pt has a walker for post op. Pt is planning to stay with a friend, Jason ([phone]) for a little bit until he recovers from surgery. Friend is planning on taking him home. Originally he was thinking he was good to d/c today but after second PT session is in a lot of pain and wants to stay another night. FACILITY COORDINATOR communicated only the provider can make that decision, Pt reports understanding. Plan: home when medically stable. Transport with friend in POV to friend's house. CM team will continue to follow as needed. JOANNE Bryson Discharge Planning/Care Management CM Discharge Assessment Start: 10/05/23 16:40 Freq: Status: Active Protocol: Document 10/05/23 16:40 SL (Rec: 10/05/23 16:45 SL [id number]) Discharge Planning Assessment Assigned Surveyor Chain Helper JOANNE James Advance Directives? No History Provided By Patient,Medical Record Prior Living Arrangements House Household Members none Type of transporation used prior to Drives own vehicle admit Independent with ADL's Yes Is patient alert and oriented? Yes DME Already Rented / Owned FWW / Walker Discharge Plan Home Transportation Arrangement friend in POV Referrals Initiated None needed Whiteboard Updated in Patient Room with No name and ext. # of Surveyor Chain Helper Review Status In Process Next Review Type Continued Stay Review Pre-Anesthesia Assessment Start: 09/28/23 13:30 Freq: Status: Active Protocol: Document 09/28/23 13:30 CAB (Rec: 09/28/23 14:24 CAB [id number]) Pre-Anesthesia Assessment Preferred Name Neil Patient Information Reviewed Via Phone Assessment Assessment Completed With Patient Primary Care Provider Keith Woodruff Seen Specialist in Last 12 Months Yes Specialist Seen Heel Slicker,Orthopedist Primary Language Kazakh Wood Carver Required No Height 182.88 cm Weight 99.79 kg Body Mass Index (BMI) 29.8 Hearing Ability Normal Visual Assist Magnifying Glass Dentition Type Partial- Lower,Full- Upper Barriers to Learning None Hx Anesthesia Reactions No Hx Family Anesthesia Reaction No Hx Malignant Hyperthermia No Hx Blood Transfusions No Anesthesia Review Requested No Button Maker No alcohol intake former Alcohol Intake Frequency Other: Sober since 1998 Substance Use Type marijuana Pain Present Pain Reported Musculoskeletal Symptoms Abnormal Gait,Back Pain, Difficulty Walking,Joint Pain, Radiating Pain into Limb History of Falling (Recent or History of No ) Patient is completely paralyzed or No completely immobile Mental Status Oriented to own ability Is patient on oxygen? No Does patient have ELENA/SOB No Hx Sleep Apnea No Currently Taking a Beta Glenn Yes: Metoprolol Hx Chest Pain No Hx SOB No Hx Syncope or Dizziness No Anti-Coagulant Therapy Yes: ASA 81mg daily-advised to hold 7 days prior per surgeon Has a Heel Slicker Yes: Last visit 02/05/[address] Hill @ [facility] Cardiac Testing Echo 02/21/23 @ [facility] Hx Pacemaker/ICD Yes: ICD form scanned and copy placed in surgery folder for dos Pacemaker Rep Required? Yes: Bety joel/Starr has been notified 09/01/23 Cardiac Clearance Received Yes Comment Cardiac records scanned Diet Type At Home Regular Dysphagia No Urinary Catheter Present No Hx Urinary Self Catheterization No Diabetes No HgbA1C 5.9 Date 05/25/23 Presence of External or Internal Medical Cardiac stent, ICD, right Devices ankle hardware Have you had any close contact with No someone diagnosed with COVID-19? Received a COVID vaccine? Yes Received all doses? Yes Marital Status Single Lives With none Current Living Arrangements House Number of Floors (Floors) One Floor Support System Friend(s) Comment Neighbors will assist with care at DC-can spend the night Does the Patient Have Assistance After Yes Surgery Patient Discharge Plan Description Return Home Comment Pt advised overnight length of stay per surgeon Feels Safe in Current Environment Yes Been Physically Hurt or Threatened By a No Person in Current Environment Do you have thoughts of harming yourself None or others? Are you currently considering suicide? No Do you have a plan to hurt yourself or No Plan others? Do You Have Any Spiritual Beliefs That No May Affect Your HC Choices? Do You Have Any Cultural Practices That No May Affect Your HC Choices? Comment Rastafarian Who Can We Speak to About Patient's Care Family, friends Identifying Code for Release of Patient Declines to issue Information Health Care Proxy/Next of Kin Jason Vick (neighbor) Health Care Proxy Emergency Contact Name Jason Vick (neighbor) Emergency Contact Advance Directives? No Power of Product Development Actuary No PAC Instructions Durable medical equipment, Medications to take/avoid, Nasal antibiotic,No ETOH/ petroleum product on skin DOS, NPO,Post-op transportation, Sensory aids,Sturdy shoes/ comfortable clothes,Do not bring valuables and remove jewelry
[2023-10-05] MEDS: HYDROMORPHONE 0.5 MG INJ IV ×2 (18:30→23:36)
[2023-10-05] MEDS: TRAZODONE 50 MG TABLET 25 MG PO (20:38)
[2023-10-05] MEDS: SENNOSIDES 8.6 MG TABLET 17.2 MG PO (20:39)
[2023-10-05] MEDS: ATORVASTATIN 20 MG TABLET 80 MG PO (20:39)
[2023-10-06 00:03] VITALS: BP 114/73; PULSE 87; RESP 18; TEMP 36.7; O2SAT 91
[2023-10-06] MEDS: OXYCODONE IR 10 MG TABLET PO ×3 (03:46→14:51)
--- NOTE | 2023-10-06 07:58 | PM.DS.1 ---
History of Present Illness History of Present Illness Date Patient Seen: 10/06/23 Time Patient Seen: 07:58 Chief complaint: [place] Intrbody Fus./Laminotomy -Robot Narrative: Operative Date/Time/Diagnoses Date of procedure: 10/04/23 Time of procedure: 12:50 Pre-op diagnosis: 1. L4-5, L5-S1 spinal stenosis with radiculopathy 2. History of L4-5, L5-S1 laminectomy with epidural scarring Post-op diagnosis: same Procedure & Clinicians Procedure: 1. L4-5, L5-S1 Postero-lateral and posterior interbody fusion 2. L4-5, L5-S1 interbody cage placement. 3. L4-5, L5-S1 decompressive laminectomy with bilateral facetecomies 4. L4-5, L5-S1 Posterior segmental instrumentation 5. [place] of bone marrow from iliac crest 6. Utilization of microsurgical technique and operating microscope 7. Utilization of robotic assisted navigation Same procedure as scheduled: Yes Indications: Patient has been having chronic back pain and worsening lumbar radiculopathy. Patient had previous history of laminectomy at his L4-5 L5-S1 level on the right side. Patient has persisting and worsening pain right worse than left. Patient failed multiple conservative management with worsening pain weakness and numbness in his lower extremity. Patient has been having difficulty performing activity of daily living. After discussing risks benefits of treatment options, patient elected proceed with surgery. Surgeon: Kathrine Woodard Camera Control Operator: Iron Berry Click Yes if Unassisted: No Anesthesia Type: General Operative Notes Closure Type: primary Prosthetic devices, grafts, tissues, transplants, or devices: Globus CREO MIS screws, Rise cages Applied: catheter Estimated Blood Loss (mL): 100 Blood products transfused: none Discharge Providers Provider Date of admission: 10/04/23 08:34 Discharge Date: 10/06/23 Primary care physician: Keith Woodruff MD Consults: 10/04/23 19:48 Consult to Occupational Therapy Evaluate & Treat Comment: Physician Instructions: Evaluate and treat Consult to Physical Therapy Evaluate & Treat Comment: Physician Instructions: Evaluate and Treat Discharge provider: Ambreen Bautista PA-C Summary Hospital Course Discharge Diagnosis: L4-5, L5-S1 spinal stenosis with radiculopathy, History of L4-5, L5-S1 laminectomy with epidural scarring; s/p lumbar fusion Hospital Course: Mr Terrell's hospital course was unremarkable. On the morning of POD# 2, he was feeling well and wanted to go home. He was c/o back pain, but denied LE symptoms. He was evaluated by PT throughout his stay and they felt he was appropriate for homegoing. He lives alone but has neighbors and friends available for help. He was eating and voiding without difficulty. Exam Vital Signs (past 8 hours): - 10/06/23 00:03 Temperature 98.1 F Pulse Rate 87 Respiratory Rate 18 Blood Pressure 114/73 Pulse Oximetry 91 Fraction of Inspired Oxygen 21 Oxygen Delivery Method Room Air Oxygen Flow Rate 0 Narrative Exam Narrative: 5/5 strength in hip flexors, quadriceps, hamstrings, DF, PF, and EHL bilaterally. Sensation to light touch intact throughout BLE. Calves soft, compressible, nontender. Dressing changed yesterday, CDI. 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 Multimodal pain control, f/u in office in 2 weeks as scheduled. Discharge Plan Discharge Plan Patient Disposition: Home Discharge orders & Medications Prescriptions: New acetaminophen 325 mg Tablet 650 mg PO Q6H PRN (Reason: Fever/Mild Pain (1-3)) Qty: 240 0RF docusate sodium 100 mg Capsule 100 mg PO BID PRN (Reason: constipation) Qty: 60 1RF hydroxyzine pamoate 25 mg Capsule 25 mg PO Q4HR PRN (Reason: muscle spasm) Qty: 60 0RF oxycodone 5 mg tablet 5 mg PO Q4H PRN (Reason: pain (scale score 4-6)) Qty: 42 0RF Continued atorvastatin 80 mg Tablet 80 mg PO BEDTIME trazodone 50 mg Tablet 25 mg PO BEDTIME PRN (Reason: Sleep) metoprolol succinate 50 mg Tablet Extended Release 24 Hr 50 mg PO BID amitriptyline 50 mg Tablet 25 mg PO BEDTIME PRN (Reason: Sleep) lisinopril 10 mg Tablet 10 mg PO BID nitroglycerin 0.4 mg Tablet, Sublingual 0.4 mg SUBLINGUAL Q5-15M PRN (Reason: Chest Pain) Rx Instructions: do not exceed 3 doses per episode aspirin 81 mg Capsule 81 mg PO DAILY zolpidem 10 mg tablet 10 mg PO ONCE PM PRN (Reason: insomnia) Follow up/Referrals: Kathrine Woodard MD [Physician] - As previously scheduled (Follow up with Lauro Reese PA-C, on 10/20/2023 @ 2:00 pm at [facility] in [place].) Keith Woodruff MD [Primary Care Provider] - Diet/Activity/Treatments Diet: Diet as Tolerated Activity: No deep bending or twisting at the waist. No lifting more than 10 pounds. Cold/Heat Therapy: Heating pad to low back as needed for pain. Skin/Wound/Dressing Care Report to your healthcare provider any signs of infection, such as:: chills, fever, night sweats, unusual drainage and unusual redness Dressing: May shower. Keep dressing as dry as possible. If dressing becomes wet or dirty, may remove and replace with clean, dry gauze. No bathing or otherwise soaking incisions. Do not apply any creams, lotions, or ointments to incisions. Visit Report/Discharge Packet Instructions: DI for Prescription Opioid Use, DI for Transforaminal Lumbar Interbody Fusion Stand Alone Forms: Patient Portal/API, Stroke Signs & Symptoms, Surgery Discharge Discharge Data Primary Care Provider: Keith Woodruff Quality VTE Deep Vein Thrombosis/Pulmonary Embolism Present on Admission: No
[2023-10-06 08:50] VITALS: BP 114/79; PULSE 108; RESP 20; TEMP 36.3; O2SAT 96
[2023-10-06 09:14] VITALS: BP 114/79; PULSE 108
[2023-10-06] MEDS: lisinopriL 10 MG TABLET PO (09:14)
[2023-10-06] MEDS: METOPROLOL ER 50 MG TABLET PO (09:14)
[2023-10-06] MEDS: DOCUSATE 100 MG CAPSULE PO (09:14)
[2023-10-06] MEDS: ACETAMINOPHEN 325 MG TABLET 650 MG PO (09:14)
--- NOTE | 2023-10-06 10:15 | PT.IPTN ---
Current Diagnoses Spinal stenosis, lumbosacral region (10/04/23) Postlaminectomy syndrome, not elsewhere classified (10/04/23) Arthrodesis status (10/04/23) Surgery Performed Operation Date: 10/04/23 10:45 Actual Procedures p L4-5, L5-S1 TLIF with posterior instrumentation -Robot - Kathrine Woodard MD Physical Therapy Treatment Note M2 PT-IP Current Condition Start: 10/05/23 08:24 Freq: NEEDED Status: Active Protocol: Document 10/05/23 08:40 MB (Rec: 10/05/23 09:57 MB [id number]) Physical Therapy Current Condition Current Condition Evaluation Date 10/05/23 Treatment Diagnosis L4-S1 interbody fusion and cage placement Onset Date 10/04/23 M3 PT-IP Subjective Start: 10/05/23 08:24 Freq: NEEDED Status: Active Protocol: Document 10/06/23 11:40 TS (Rec: 10/06/23 12:06 TS [id number]) Subjective Physical Therapy Visit Type Type Treatment Note Visit Start Time 10:15 Visit Stop Time 10:43 Total Visit Minutes 28 Number of [employer]ASING [employer]PERVISOR Visits 2 Physical Therapy Visit Comments Patient Comments Pt found resting in bed, continues to have pain, is agreeable to PT. Therapy Pain Assessment Pain When Pain Assessed During Mobility Pain Present Pain Present Pain Reported M4 PT-IP Mobility and Gait Start: 10/05/23 08:24 Freq: NEEDED Status: Active Protocol: Document 10/06/23 11:40 TS (Rec: 10/06/23 12:06 TS [id number]) PT-Bed Mobility Assessment Rolling Type of Rolling Log Rolling Level of Assist Standby Assistance,1 Person Assistance Supine to Sit Supine to Sit Standby Assistance,1 Person Assistance,Bedrails Sit to Supine Sit to Supine Standby Assistance Scooting Scooting to Edge of Bed Standby Assistance Scooting Up and Down in Bed Standby Assistance PT-Transfer Assessment Sit to and From Stand Sit to and from Stand Standby Assistance,Use of Upper Extremities Equipment Transfer Assistive Device Gait Belt,Front Wheeled Walker Orthotic/Prosthetic Devices or Brace: No Comments Mobility Comments Pt recalled 3/3 spinal precautions this morning with extra time. He performed logroll SBA with HOB elevated and use of bed rails, he demonstrates logroll technique . Pt sat EOB, reports feeling woozy, BP in sitting 121/73. Sit to stand with FWW SBA and use of BUE support on walker. He ambulated ~100'SBA with FWW, is slightly unsteady due to NBOS and ongoing wooziness , requested to sit in w/c. Pt was brought to steps, he performed steps SBA step over step with use of B handrails, had no buckling or LOB. Pt was brought back to room, sit to supine into bed SBA, pt adjusting pillows and sheets, requires cues for spinal precautions. Pt recalled 3/3 spinal precautions once back in bed with some difficulty. Pt was left back in bed, all needs met, RN notified. Gait Assessment Gait Gait Assistance Required: Standby Assistance,1 Person Assist Distance (Feet) 100 Able to Maintain Weight Bearing Status Yes During Gait Assistive Devices Assistive Device Gait Belt,Front Wheeled Walker Orthotic/Prosthetic Devices or Brace: No Gait Deviations General Gait Pattern Antalgic,Decreased Stride Length,Decreased Feet Clearance,Narrow Based Gait Factors Limiting Gait Function Factors Limiting Gait Function Pain,Poor Balance,Poor Safety Awareness Comments Gait Comments See mobility comments Stair Climbing Assessment Evaluation Level of Assist On Stairs Standby Assistance,1 Person Assistance Devices Stair Climbing Assistive Devices Left Railing,Right Railing Technique/Endurance Stair Climbing Direction Ascend and Descend Stair Climbing Technique Step Over Step Number of Steps Climbed 3 Stair Climbing Set # Repetitions (reps) 2 Comments Stair Climbing Comments See mobility comments. PT-Balance Assessment Sitting Balance and Reactions Static Sitting Balance Ability Normal Dynamic Sitting Balance Ability Good Standing Balance and Reactions Static Standing Balance Ability Good Dynamic Standing Balance Ability Fair M5 PT-IP Objective Assessments Start: 10/05/23 08:24 Freq: NEEDED Status: Active Protocol: Document 10/05/23 08:40 MB (Rec: 10/05/23 09:57 MB [id number]) Orientation Orientation/Cognition Level of Alertness Alert Orientation Name,Age,Birthday,Month,Date, Year,Day of Week,Place, Situation Language Function Ability No Deficits Noted Safety Awareness Decreased Safety Awareness Memory Description No Deficits Noted Gross Range of Motion Upper Extremity ROM Impairments Defer to OT Lower Extremity ROM Assessment Within Functional Limits Strength Lower Extremity Strength Assessment Within Functional Limits Sensation Assessment Sensation Gross Sensation WNL M6 PT-IP Treatment Start: 10/05/23 08:24 Freq: NEEDED Status: Active Protocol: Document 10/06/23 11:40 TS (Rec: 10/06/23 12:06 TS [id number]) Physical Therapy Treatment Education Education Provided Precautions,Post-Op Packet, Safety M7 PT-IP Assessment and Plan Start: 10/05/23 08:24 Freq: NEEDED Status: Active Protocol: Document 10/06/23 11:40 TS (Rec: 10/06/23 12:06 TS [id number]) PT Summary Assessment and Plan Potential Rehabilitation Potential Good Summary Impairments Pain,Balance,Activity Tolerance Progress Towards Goals Progressing Toward Goals Assessment Summary Edmond is making some progress with his mobility this session. He performed bed mobility SBA with good logroll tehcnique. He continues to be SBA with FWW for sit to stand . He ambulated ~100'SBA, slightly unsteady due to NBOS and feeling lightheaded, BP was unremarkable. He performed stairs x6 step over step with no buckling or LOB. Pt could recall spinal precautions but required extra time to do so. He does require some cueing for spinal precautions dueing mobility due to being impulsive and is lacking good safety awareness. PT is recommending home with assist. Goals Bed Mobility Goal Independent Transfer Goal Independent,Front Wheeled Walker Gait Goal Independent,Front Wheel Walker Gait Distance 100 Other Goals Pt will ascend and descend 5 steps with 2 rails and mod I. Pt will verbalize 3/3 back precautions. Days to Meet Goals 2 Frequency of Treatment Frequency Of Treatment Twice a Day Treatment Plan Physical Therapy Treatment Plan Bed Mobility Training,Transfer Training,Gait Training, Therapeutic Exercise,Balance Retraining,Post Op Education, Discharge Planning,Hot or Cold Pack Precautions Lumbar Precautions Log Roll,No Twisting,Limit Bending,Lifting Restriction of 10 lbs,Gait Belt above Incisional Area Weight Bearing Status Weight Bearing Status Weight Bear as Tolerated Recommendations To Nursing Amount of Assist Needed 1 Person Assist Discharge Recommendations PT Discharge Recommendations Home with Assistance Transportation Needs at Discharge Private Vehicle
[2023-10-06] MEDS: ONDANSETRON 4 MG ODT SL (14:51)
--- NOTE | 2023-10-06 15:04 | PC.NURSE ---
Day shift: Discharge instructions gone over with patient. All questions answered, patient stated understanding. PIV removed. Patient has all belongings. MATTI Lopes escorted patient via wheelchair to exit where his friend is picking him up.
--- NOTE | 2023-10-06 15:22 | CM.DPNOTE ---
DCP Note Discharge home w/family to assist, cleared for therapies for this plan. No barriers identified from this CM team. Plan: Discharge home w/recommendation for close outpatient follow up. TAE
== END 2023-10-06 15:31 | disposition home or self-care (01) | DRG 455 ==
PROVIDERS: Admitting Provider Orthopaedic Surgery Orthopaedic Surgery of the Spine; PCP Family Medicine; Referring Provider Orthopaedic Surgery Orthopaedic Surgery of the Spine; Visit Provider Orthopaedic Surgery Orthopaedic Surgery of the Spine
PROC: 0SG00AJ Fusion of Lumbar Vertebral Joint with Interbody Fusion Device, Posterior Approach, Anterior Column, Open Approach (ICD-10-PCS; principal; 2023-10-04 10:45)
DX: M48.061 Spinal stenosis, lumbar region without neurogenic claudication (principal); M54.16 Radiculopathy, lumbar region; M96.1 Postlaminectomy syndrome, not elsewhere classified; M48.07 Spinal stenosis, lumbosacral region; M54.17 Radiculopathy, lumbosacral region; E78.5 Hyperlipidemia, unspecified; I10 Essential (primary) hypertension; I25.10 Atherosclerotic heart disease of native coronary artery without angina pectoris; Z95.810 Presence of automatic (implantable) cardiac defibrillator; Z87.891 Personal history of nicotine dependence
CPT/HCPCS: 72100; 76000; 85014; 85018; 97116; 97161; 97165; 97530; 97535; C9290; J0171; J0330; J0690; J1100; J1170; J2060; J2250; J2405; J2704; J3010